=== PATIENT | male | born 1945 | race Caucasian/White ===

== ENCOUNTER → 2019-01-19 | Outpatient (CLI) | payer OTHER ==
[2019-01-19 12:12] LABS: BASOPHILS # (AUTO) 0.02 x10^3/uL (0-0.1); BASOPHILS % (AUTO) 0 % (0-1); EOSINOPHILS # (AUTO) 0.11 x10^3/uL (0-0.4); EOSINOPHILS % (AUTO) 2 % (1-7); LYMPHOCYTES # (AUTO) 1.14 x10^3/uL (1-3.4); LYMPHOCYTES % (AUTO) 21 % (22-44); MD NO; MEAN CORPUSCULAR HEMOGLOBIN 32.6 pg (27.5-34.5); MEAN CORPUSCULAR HGB CONC 34.3 g/dL (33.2-36.2); MEAN PLATELET VOLUME 8.1 fL (7.4-10.4); MONOCYTES # (AUTO) 0.34 x10^3/uL (0.2-0.8); MONOCYTES % (AUTO) 6 % (2-9); NEUTROPHILS # (AUTO) 3.94 x10^3/uL (1.8-6.8); NEUTROPHILS % (AUTO) 71 % (42-75); PLATELET COUNT 282 x10^3/uL (130-400); RED BLOOD COUNT 4.52 x10^6/uL (4.38-5.82); RED CELL DISTRIBUTION WIDTH 15.1 % (9.4-14.8)
[2019-01-19 12:26] LABS: CHLORIDE 110 mmol/L (98-107)
[2019-01-19 12:42] LABS: ALANINE AMINOTRANSFERASE 27 U/L (12-78); ALBUMIN 3.7 g/dL (3.4-5.0); ALKALINE PHOSPHATASE 81 U/L (45-117); ANION GAP 4 mmol/L (5-15); BILIRUBIN,TOTAL 0.5 mg/dL (0.2-1.0); CALCIUM 8.9 mg/dL (8.5-10.1); CREATININE 1.41 mg/dL (0.7-1.3); TOTAL PROTEIN 7.8 g/dL (6.4-8.2)
[2019-01-19 12:56] LABS: INTERNATIONAL NORMALIZED RATIO 1.02 (0.93-1.1); PROTHROMBIN TIME 10.7 Seconds (9.6-11.5)
[2019-01-19 14:01] LABS: HEMOGLOBIN A1C 5.5 % (4.2-6.3)
== END | disposition home or self-care (01) ==
LOC: STAR 10:38
PROVIDERS: ATTEND Student in an Organized Health Care Education/Training Program
DX: Z01.818 Encounter for other preprocedural examination (principal); N28.89 Other specified disorders of kidney and ureter
CPT/HCPCS: 36415; 80053; 83036; 85025; 85610; 85730; 93005

== ENCOUNTER 2019-02-03 05:10 | Inpatient (IN) | payer OTHER ==
[~2019-02-03] VITALS: Ht 177.8 cm; Wt 95.0 kg
[2019-02-03] MEDS ORDERED: INDIGO CARMINE 0.8%, 5ML ONE (06:40)
[2019-02-03] MEDS ORDERED: EPINEPHRINE 1 MG/ML, 1ML ONE ×3 (06:40→10:42)
[2019-02-03] MEDS ORDERED: BUPIVACAINE/PF 0.25% ONE ×2 (06:40→10:42)
[2019-02-03] MEDS ORDERED: LACTATED RINGERS 1,000 ML IV SCH (06:53)
[2019-02-03] MEDS ORDERED: MIDAZOLAM 1 MG/ML, 2ML ONE (07:01)
[2019-02-03] MEDS ORDERED: FENTANYL PF 250 MCG/5ML ONE (07:02)
[2019-02-03] MEDS ORDERED: APREPITANT 40 MG CAPSULE ONE ×2 (07:09→07:37)
[2019-02-03] MEDS ORDERED: GABAPENTIN 300 MG CAPSULE ONE ×2 (07:09→07:37)
[2019-02-03] MEDS ORDERED: hydrALAzine 20 MG/ML, 1ML IV PRN (07:30)
[2019-02-03] MEDS ORDERED: ACETAMINOPHEN 325 MG TABLET PO PRN (07:30)
[2019-02-03] MEDS ORDERED: OXYcodone 5 MG/5 ML ORAL.SOL UDC PO PRN ×2 (07:30→11:00)
[2019-02-03] MEDS ORDERED: HYDROmorphone 2 MG/ML, 1ML IVPush PRN (07:30)
[2019-02-03] MEDS ORDERED: FENTANYL PF 100 MCG/2ML IV PRN (07:30)
[2019-02-03] MEDS ORDERED: PROMETHAZINE 25 MG/ML, 1ML IV PRN (07:30)
[2019-02-03] MEDS ORDERED: MEPERIDINE/PF 25MG/ML,1ML IVPush PRN (07:30)
[2019-02-03] MEDS ORDERED: CEFOTETAN PMX 2GM/50ML 50 ML IVPB ONE (07:37)
[2019-02-03] MEDS ORDERED: THROMBIN SPRAY 20,000 UNIT SPRAY TP ONE (08:26)
[2019-02-03] MEDS ORDERED: MEPERIDINE/PF 100 MG/ML ONE (09:39)
[2019-02-03] MEDS ORDERED: CEFOTETAN PMX 2GM/50ML 50 ML ONE (10:33)
[2019-02-03] MEDS ORDERED: PROPOFOL 10 MG/ML, 20ML ONE (10:33)
[2019-02-03] MEDS ORDERED: ONDANSETRON 2MG/ML, 2ML ONE (10:33)
[2019-02-03] MEDS ORDERED: LIDOCAINE-MPF 2% ,5ML ONE (10:33)
[2019-02-03] MEDS ORDERED: DEXAMETHASONE 4 MG/ML, 1ML ONE (10:33)
[2019-02-03] MEDS ORDERED: ROCURONIUM 10MG/ML,5ML ONE (10:33)
[2019-02-03] MEDS ORDERED: PHENYLEPHRINE 10 MG/ML ONE (10:33)
[2019-02-03] MEDS ORDERED: SUGAMMADEX 200 MG/2 ML IVPush ONE (10:43)
[2019-02-03] MEDS ORDERED: ONDANSETRON 2MG/ML, 2ML IV PRN (11:00)
[2019-02-03] MEDS ORDERED: HYDROmorphone 2 MG/ML, 1ML IV PRN (11:00)
[2019-02-03] MEDS: POLYETHYLENE GLYCOL 17 GM PACKET PO SCH (11:00)
[2019-02-03 11:40] LABS: ANION GAP 11 mmol/L (5-15); CALCIUM 8.2 mg/dL (8.5-10.1); CHLORIDE 110 mmol/L (98-107); CREATININE 2.41 mg/dL (0.7-1.3)
[2019-02-03] MEDS ORDERED: POTASSIUM CHLORIDE 10 MEQ in SODIUM CHLORIDE 0.9% 1,000 ML IV SCH (12:27)
[2019-02-03 13:26] LABS: TROPONIN I < 0.015 ng/mL (0.000-0.045)
[2019-02-03 13:49] VITALS: BP 132/71
[2019-02-03] MEDS ORDERED: LABETALOL 5 MG/ML SYR. (IV ONLY) IV PRN (14:30)
[2019-02-03] MEDS: HEPARIN 5,000 UNITS/ML, 1ML SQ SCH ×2 (15:09→23:10)
[2019-02-03] MEDS: ACETAMINOPHEN 325 MG TABLET PO SCH ×2 (15:09→20:56)
[2019-02-03 17:50] LABS: TROPONIN I < 0.015 ng/mL (0.000-0.045)
[2019-02-03 20:09] VITALS: BP 130/65
[2019-02-03] MEDS: SODIUM CHLORIDE 0.9% 1,000 ML IV SCH (20:51)
[2019-02-03] MEDS: DOCUSATE 100 MG CAPSULE PO SCH (20:55)
[2019-02-04 00:31] LABS: TROPONIN I < 0.015 ng/mL (0.000-0.045)
[2019-02-04 01:01] VITALS: BP 126/66
[2019-02-04] MEDS: ACETAMINOPHEN 325 MG TABLET PO SCH ×2 (02:44→09:00)
[2019-02-04 04:39] LABS: BASOPHILS # (AUTO) 0.01 x10^3/uL (0-0.1); BASOPHILS % (AUTO) 0 % (0-1); EOSINOPHILS # (AUTO) 0.16 x10^3/uL (0-0.4); EOSINOPHILS % (AUTO) 1 % (1-7); LYMPHOCYTES # (AUTO) 0.56 x10^3/uL (1-3.4); LYMPHOCYTES % (AUTO) 3 % (22-44); MD NO; MEAN CORPUSCULAR HEMOGLOBIN 31.3 pg (27.5-34.5); MEAN CORPUSCULAR HGB CONC 32.3 g/dL (33.2-36.2); MEAN CORPUSCULAR VOLUME 97.1 fL (81-97); MEAN PLATELET VOLUME 8.1 fL (7.4-10.4); MONOCYTES # (AUTO) 0.68 x10^3/uL (0.2-0.8); MONOCYTES % (AUTO) 4 % (2-9); NEUTROPHILS # (AUTO) 16.47 x10^3/uL (1.8-6.8); NEUTROPHILS % (AUTO) 92 % (42-75); PLATELET COUNT 249 x10^3/uL (130-400); RED BLOOD COUNT 4.18 x10^6/uL (4.38-5.82); RED CELL DISTRIBUTION WIDTH 15.2 % (9.4-14.8)
[2019-02-04 04:54] LABS: ANION GAP 8 mmol/L (5-15); CALCIUM 8.3 mg/dL (8.5-10.1); CHLORIDE 108 mmol/L (98-107); CREATININE 2.78 mg/dL (0.7-1.3)
[2019-02-04] MEDS: SODIUM CHLORIDE 0.9% 1,000 ML IV SCH (05:50)
[2019-02-04] MEDS: HEPARIN 5,000 UNITS/ML, 1ML SQ SCH (08:00)
[2019-02-04 08:02] VITALS: BP 174/79
[2019-02-04] MEDS: POLYETHYLENE GLYCOL 17 GM PACKET PO SCH (09:00)
[2019-02-04] MEDS: DOCUSATE 100 MG CAPSULE PO SCH (09:00)
[2019-02-04 12:31] LABS: MICROSCOPIC INDICATED
[2019-02-04 12:48] LABS: CULTURE INDICATED? YES
[2019-02-04] MEDS ORDERED: HYDR-3240 PO (14:43)
== END 2019-02-04 15:00 | disposition home or self-care (01) | DRG 658 ==
LOC: ORIP 05:10 → 4WST 13:21 → DCLOUNGE 02-04 14:50
PROVIDERS: ADMIT Student in an Organized Health Care Education/Training Program; ATTEND Family Medicine
PROC: 8E0W4CZ Robotic Assisted Procedure of Trunk Region, Percutaneous Endoscopic Approach (ICD-10-PCS; 2019-02-03)
PROC: 0TT04ZZ Resection of Right Kidney, Percutaneous Endoscopic Approach (ICD-10-PCS; principal; 2019-02-03 07:30)
DX: C64.1 Malignant neoplasm of right kidney, except renal pelvis (principal); N18.9 Chronic kidney disease, unspecified; E87.6 Hypokalemia; I12.9 Hypertensive chronic kidney disease with stage 1 through stage 4 chronic kidney disease, or unspecified chronic kidney disease; N32.0 Bladder-neck obstruction; R91.1 Solitary pulmonary nodule; I95.89 Other hypotension; Z90.5 Acquired absence of kidney
CPT/HCPCS: 36415; J3490; 71045; 80048; 81001; 82040; 83880; 84484; 85014; 85018; 85025; 86850; 86900; 87077; 87086; 87186; 88305; 88307; 93005; C1729; G0378; J0171; J1100; J1644; J2250; J2405; J2704; J3010; J8501; C1760; J2175; J2370; J7030; J7120